=== PATIENT | male | born 1985 | race Caucasian/White ===

== ENCOUNTER 2020-08-25 10:39 | Emergency (ER) | payer BC, OTHER ==
[~2020-08-25 10:39] MED LIST: HUMALOG 10100 UNITS/ SC; IMODIUM CAP 2 MG2 MG PO; LANTUS100 UNIT/1 SQ; NOVOLOG100 UNIT/1 SC; ZOFRAN ODT 4 MG4 MG SL
[2020-08-25 11:24] LABS: RED BLOOD COUNT 5.63 M/UL (4.20-5.50); WHITE BLOOD COUNT 10.8 K/UL (4.5-11.0)
[2020-08-25 11:51] LABS: BUN/CREATININE RATIO 23 (0-10)
[2020-08-25] MEDS ORDERED: REGLAN10 MG PO (13:39)
[2020-08-25] MEDS ORDERED: PHENERGAN 12.12.5 M1 PO (13:39)
== END 2020-08-25 14:23 | disposition home or self-care (01) ==
LOC: ER1 10:39
PROVIDERS: Physician Assistant Medical
DX: R10.12 Left upper quadrant pain (principal); R11.2 Nausea with vomiting, unspecified; R19.7 Diarrhea, unspecified; E11.9 Type 2 diabetes mellitus without complications; E78.5 Hyperlipidemia, unspecified; Z79.899 Other long term (current) drug therapy
CPT/HCPCS: 80053; 81001; 82009; 82803; 83605; 85025; 96374; 99284; J2405; J7030; Q9967